=== PATIENT | male | born 1955 | race Caucasian/White ===

== ENCOUNTER 2024-06-30 10:30 | Emergency (ER) | payer OTHER ==
[2024-06-30] MEDS ORDERED: NA CHLORIDE 0.9% 1,000 ML ONE (11:08)
[2024-06-30] MEDS ORDERED: BISACODYL 10 MG RECTAL SUPP ONE (11:08)
[2024-06-30] MEDS ORDERED: FAMOTIDINE 20 MG/2 ML VIAL IV ONE (11:08)
[2024-06-30] MEDS ORDERED: LACTULOSE 20 GM/30 ML UCUP ONE (11:09)
[2024-06-30 11:12] LABS: Absolute Eosinophils 0.2 K/uL (0-0.5); Absolute Lymphocytes (CBC) 1.2 K/uL (0.7-4.9); Absolute Monocytes 0.8 K/uL (0.1-1.3); Absolute Neutrophil 2.9 K/uL (1.8-8.0); Basophils % 0.8 % (0-1.3); Eosinophils % 4.2 % (0-4.4); Lymphocytes % 22.4 % (15.3-44.8); MCH 33.7 pg (27.0-35.0); MCHC 33.3 g/dL (32.0-36.0); MCV 101.3 fL (80-100); Monocytes % 16.2 % (3.3-12.3); Neutrophils % 56.4 % (41.7-73.7); Nucleated Red Blood Cells % 0.1 % (0-0); Platelets 174 thou/uL (152-406); RBC Red Blood Cell Count 2.07 M/uL (4.33-5.43); Red Cell Distribution Width 15.1 % (12.1-15.2)
[2024-06-30 11:15] LABS: PT Prothrombin Time 15.9 SECONDS (9.4-12.5); Protime INR 1.43
[2024-06-30 11:32] LABS: Anion Gap 11.6 mEq/L (5.0-15.0); Bilirubin Direct 0.3 mg/dL (0-0.2); Bilirubin Indirect, Calculated 0.6 mg/dL (0.2-0.8); Bilirubin Total 0.9 mg/dL (0.2-1.0); Magnesium 2.2 mg/dL (1.6-2.4); Potassium 3.6 mEq/L (3.5-5.1)
[2024-06-30 11:35] LABS: Sqamous Epithelial <5 /HPF (None Seen); Urine Bacteria None Seen /HPF (<20); Urine Bilirubin NEGATIVE (Negative); Urine Blood Negative (Negative); Urine Clarity Clear (Clear); Urine Color Yellow (Yellow); Urine Culture Reflex Order NOT NEEDED; Urine Glucose NEGATIVE (Negative); Urine Ketones TRACE (Negative); Urine Microscopic Reflex YN ORDER UMIC; Urine Mucus 1+ /HPF (None Seen); Urine Nitrite NEGATIVE (Negative); Urine Protein TRACE (Negative); Urine RBC <5 /HPF (None Seen); Urine Urobilinogen Normal (Normal); Urine WBC <5 /HPF (<5); Urine pH 5.5 (5.0-7.0)
[2024-06-30 11:37] LABS: Troponin High Sensitivity 1070.2 pg/mL (<58.9)
--- NOTE | 2024-06-30 11:37 | RAD REPORT ---
EXAMINATION: ONE VIEW CHEST XR CLINICAL INDICATION: ABDOMINAL DISTENTION TECHNIQUE: Frontal chest projection is submitted. Examination is limited by patient positioning and t echnique. COMPARISON: No prior exam. FINDINGS: The lungs are well inflated and clear. The heart is normal in size. No displaced fractures identified . IMPRESSION: No acute intrathoracic abnormalities.
--- NOTE | 2024-06-30 12:14 | RAD REPORT ---
EXAMINATION: CT ABDOMEN AND PELVIS WITH CONTRAST CLINICAL INDICATION: Abd pain;Constipation TECHNIQUE: CT abdomen and pelvis was performed, after the administration of IV contrast, as per [facility] protocol. Axial, sagittal and coronal reconstructions were obtained. One or more of the following dose reduction techniques were used: Automated exposure control, adjustment of the mA and k V according to patient size, and iterative reconstruction. Unless otherwise specified, incidental findings do not require dedicated imaging follow-up. COMPARISON: 04/02/2024 FINDINGS: LOWER CHEST: The visualized lung bases are clear. Numerous varicosities seen at the gastroesophageal junction. LIVER: Mild fatty liver is present. No focal lesion or biliary dilatation is seen. Grossly unremark able gallbladder. SPLEEN: 3 cm rim enhancing lesion unchanged. PANCREAS: No mass, ductal dilation, or dandre-pancreatic fluid. ADRENALS: Normal; no mass. KIDNEYS: Several calyceal stones left kidney without hydronephrosis. Right-sided stones or hydronephr osis. GASTROINTESTINAL TRACT: No evidence of free air, significant intra-abdominal free fluid, bowel obstru ction or abscess. Moderate stool is present in the colon. Several diverticula extend from the sigmoid colon. Mild adjacent fluid is seen. APPENDIX: Normal appendix. LYMPH NODES: No lymphadenopathy. MUSCULOSKELETAL: Mild multilevel spinal degenerative changes. ADDITIONAL FINDINGS: None. IMPRESSION: No acute or concerning abnormalities seen in the abdomen or pelvis. Nonobstructing left renal calculi. Sigmoid diverticulosis coli with mild adjacent fluid. Follow-up colonoscopy would be advised if not r ecently performed.
[2024-06-30] MEDS ORDERED: NA CHLORIDE 0.9% 250 ML ONE ×2 (12:25→13:24)
[2024-06-30] MEDS ORDERED: NA CHLORIDE 0.9% 100 ML ONE (12:25)
[2024-06-30] MEDS ORDERED: PANTOPRAZOLE 40 MG INJ ONE (12:25)
[2024-06-30] MEDS ORDERED: PIPERACIL/TAZO 3.375 GM VIAL IV ONE (12:26)
[2024-06-30 12:35] LABS: Hemoglobin 6.7 g/dL (13.6-17.9); Percent Reticulocyte Count 8.32 % (0.4-2.05); RBC Red Blood Cell Count 1.89 M/uL (4.33-5.43)
--- NOTE | 2024-06-30 12:40 | EDPHYS ---
Physician Documentation [facility] Name: Jonah Oliveira Age: 69 yrs Sex: Male : 1955 Arrival Date: 06/30/2024 Time: 10:30 Bed 16 Private MD: ED Physician Kuldeep Ray HPI: 06/30 12:24 This 69 yrs old Male presents to ER via Ambulatory with complaints of srini Dizziness. 12:24 The patient presents with dizziness, feeling faint, generalized weakness, srini lightheadedness. Onset: The symptoms/episode began/occurred 5 day(s) ago. Modifying factors: The symptoms are alleviated by EXERTION. Associated signs and symptoms: Pertinent positives: WEAK, DARK STOOLS , NO BLACK. Severity of symptoms: At their worst the symptoms were moderate in the emergency department the symptoms have improved moderately, NO CP INITALLY. Patient's baseline: Neuro: alert and fully oriented. The patient has not experienced similar symptoms in the past. Historical: - Allergies: 10:47 No Known Allergies; ss - Home Meds: 10:47 Lisinopril [Active]; Metformin [Active]; Flomax Oral [Active]; ss - PMHx: 10:47 hypertension; Diabetes mellitus; Enlarged prostate; ss - PSHx: 10:47 cataracts; ss - Immunization history:: Client reports receiving the 2nd dose of the Covid vaccine. - Infectious Disease History:: Denies. - Social history:: Smoking status: Patient denies any tobacco usage or history of. ROS: 12:28 Constitutional: Negative for fever, chills, and weight loss, Eyes: Negative for injury, srini pain, redness, and discharge, ENT: Negative for injury, pain, and discharge, Neck: Negative for injury, pain, and swelling, Cardiovascular: Negative for chest pain, palpitations, and edema, Respiratory: Negative for shortness of breath, cough, wheezing, and pleuritic chest pain, Back: Negative for injury and pain, : Negative for injury, bleeding, discharge, and swelling, MS/Extremity: Negative for injury and deformity, Skin: Negative for injury, rash, and discoloration, Psych: Negative for depression, anxiety, suicide ideation, homicidal ideation, and hallucinations, Allergy/Immunology: Negative for hives, rash, and allergies, Endocrine: Negative for neck swelling, polydipsia, polyuria, polyphagia, and marked weight changes, Hematologic/Lymphatic: Negative for swollen nodes, abnormal bleeding, and unusual bruising, 12:28 Abdomen/GI: Positive for abdominal pain, nausea, black/tarry stool, of the right lower quadrant and left lower quadrant, 12:28 MS/extremity: Negative for acute changes, swelling, tenderness, Exam: 12:28 Constitutional: This is a well developed, well nourished patient who is awake, alert, srini and in no acute distress. Head/Face: Normocephalic, atraumatic. Eyes: Pupils equal round and reactive to light, extra-ocular motions intact. Lids and lashes normal. Conjunctiva and sclera are non-icteric and not injected. Cornea within normal limits. Periorbital areas with no swelling, redness, or edema. ENT: Nares patent. No nasal discharge, no septal abnormalities noted. Tympanic membranes are normal and external auditory canals are clear. Oropharynx with no redness, swelling, or masses, exudates, or evidence of obstruction, uvula midline. Mucous membranes moist. Neck: Trachea midline, no thyromegaly or masses palpated, and no cervical lymphadenopathy. Supple, full range of motion without nuchal rigidity, or vertebral point tenderness. No Meningismus. Chest/axilla: Normal chest wall appearance and motion. Nontender with no deformity. No lesions are appreciated. Cardiovascular: Regular rate and rhythm with a normal S1 and S2. No gallops, murmurs, or rubs. Normal PMI, no JVD. No pulse deficits. Respiratory: Lungs have equal breath sounds bilaterally, clear to auscultation and percussion. No rales, rhonchi or wheezes noted. No increased work of breathing, no retractions or nasal flaring. Back: No spinal tenderness. No costovertebral tenderness. Full range of motion. Male : Normal genitalia with no discharge or lesions. Skin: Warm, dry with normal turgor. Normal color with no rashes, no lesions, and no evidence of cellulitis. MS/ Extremity: Pulses equal, no cyanosis. Neurovascular intact. Full, normal range of motion., bilateral aka Neuro: Awake and alert, GCS 15, oriented to person, place, time, and situation. Cranial nerves II-XII grossly intact. Motor strength 5/5 in all extremities. Sensory grossly intact. Cerebellar exam normal. Normal gait. Psych: Awake, alert, with orientation to person, place and time. Behavior, mood, and affect are within normal limits. 12:28 ECG was reviewed by the Attending Physician. 12:28 Abdomen/GI: Inspection: abdomen appears normal, Bowel sounds: normal, Palpation: mild abdominal tenderness, in the right lower quadrant and left lower quadrant, Liver: no appreciated palpable abnormalities, Hernia: not appreciated, 12:30 ECG was reviewed by the Attending Physician. [facility] 12:30 Abdomen/GI: Rectal exam: rectal tone normal, Stool: black, mass, is not appreciated, swelling, is not appreciated, tenderness, is not appreciated, Vital Signs: 10:46 BP 118 / 66; Pulse 98; Resp 16; Temp 97.5(TE); Pulse Ox 100% on R/A; Weight 79.38 kg; ss Height 5 ft. 9 in. ; Pain 0/10; 11:52 BP 124 / 68; Pulse 84; Resp 16; Pulse Ox 99% ; ko1 12:30 BP 132 / 73; Pulse 94; Resp 18; Temp 97.9; Pulse Ox 100% on 2 lpm NC; ko1 14:00 BP 122 / 60; Pulse 89; Resp 15; Temp 98.1; Pulse Ox 100% on 2 lpm NC; ko1 14:51 BP 122 / 69; Pulse 80; Resp 16; Temp 98; Pulse Ox 99% ; ko1 10:46 Body Mass Index 25.84 (79.38 kg, 175.26 cm) ss 10:46 Pain Scale: Adult ss MDM: 10:38 Medical Screening Exam initiated srini 12:33 Differential diagnosis: abnormal EKG, acute myocardial infarction, anxiety, gastritis, srini diverticulitis, hemorrhoids, hemorrhagic shock, gastritis, pancreatitis, peptic ulcer disease, pulmonary embolus, stable angina, thoracic aortic disection, unstable angina. Differential Diagnosis altered mental status, sepsis, flu. HEART Score: History: Moderately Suspicious (1), ECG: Non specific repolarization disturbance / LBTB / PM (1), Age: > or = 65 years (2), Risk Factors: > or = 3 Risk factors for atherosclerotic disease (2), [Hypercholesterolemia] [Hypertension] [DM] [+ Family HX] Troponin: > or = 3 x Normal Limit (2), Total Score = 6. The patient was not given aspirin in the Emergency Department. SIMON Risk Score: 1 - patient's age is greater or equal to 65 years, 1 - Three or more CAD risk factors, 1 - Recent [<24hrs] Severe Angina, 1 - Elevated Cardiac Markers, TOTAL SCORE = 4. Data reviewed: vital signs, nurses notes, lab test result(s), EKG, radiologic studies, CT scan, plain films. Consideration of Admission/Observation Escalation of care including admission/observation considered. I considered the following discharge prescriptions or medication management in the emergency department Medications were administered in the Emergency Department. See MAR. Independent interpretation of the following test(s) in the Emergency Department EKG: See my EKG interpretation above. Historians other than the Patient: PT POOR HISTORIAN WITH SPECIFICS. Counseling: I had a detailed discussion with the patient and/or guardian regarding the historical points, exam findings, and any diagnostic results supporting the discharge/admit diagnosis, lab results, radiology results, the need to transfer to another facility, for higher level of care, [facility] does not immediately have the required specialist. 06/30 11:57 Order name: Type And Screen [facility] 06/30 10:40 Order name: Basic Metabolic Panel; Complete Time: 11:55 [facility] 06/30 10:40 Order name: CBC with Diff; Complete Time: 11:55 [facility] 06/30 10:40 Order name: LFT's; Complete Time: 11:55 [facility] 06/30 10:40 Order name: Magnesium; Complete Time: 11:55 [facility] 06/30 10:40 Order name: NT PRO-BNP; Complete Time: 11:55 [facility] 06/30 10:40 Order name: PT-INR; Complete Time: 11:55 [facility] 06/30 10:40 Order name: Troponin HS; Complete Time: 11:55 [facility] 06/30 10:40 Order name: Urinalysis w/ reflexes; Complete Time: 11:55 [facility] 06/30 10:40 Order name: Lipase; Complete Time: 11:55 [facility] 06/30 11:57 Order name: Retic Count; Complete Time: 12:50 [facility] 06/30 11:57 Order name: B12 [facility] 06/30 11:57 Order name: Iron Level [facility] 06/30 11:57 Order name: Ferritin [facility] 06/30 11:57 Order name: TIBC [facility] 06/30 12:27 Order name: LAB Add On sp 06/30 12:30 Order name: Packed RBC Leukored [facility] 06/30 12:31 Order name: Hemoglobin; Complete Time: 12:50 [facility] 06/30 13:01 Order name: ABO/RH no charge [facility] 06/30 10:40 Order name: XRAY Chest (1 view); Complete Time: 11:55 [facility] 06/30 10:40 Order name: CT Abd/Pelvis - PO and IV Contrast; Complete Time: 12:15 [facility] 06/30 12:19 Order name: EKG; Complete Time: 12:19 [facility] 06/30 10:40 Order name: Cardiac monitoring; Complete Time: 11:06 [facility] 06/30 10:40 Order name: EKG - Nurse/Tech; Complete Time: 11:32 [facility] 06/30 10:40 Order name: IV Saline Lock; Complete Time: 11:06 [facility] 06/30 10:40 Order name: Labs collected and sent; Complete Time: 11:06 [facility] 06/30 10:40 Order name: O2 Per Protocol; Complete Time: 11:06 [facility] 06/30 10:40 Order name: O2 Sat Monitoring; Complete Time: 11:06 [facility] 06/30 11:57 Order name: Transfuse; Complete Time: 14:01 [facility] 06/30 12:17 Order name: Oxygen: 2 LITERS; Complete Time: 12:22 [facility] 06/30 12:19 Order name: EKG - Nurse/Tech; Complete Time: 12:22 [facility] 06/30 13:01 Order name: IV Saline Lock - Large Bore; Complete Time: 13:08 [facility] EC:28 Rate is 81 beats/min. Rhythm is regular. QRS [place] is Normal. AK interval is normal. QRS srini interval is normal. QT interval is prolonged at 497 msec. No Q waves. T waves are Normal. No ST changes noted. Clinical impression: NSR w/ Non-specific ST/T Changes and No evidence of ischemia. Interpreted by me. Reviewed by me. 12:30 Rate is 93 beats/min. Rhythm is regular. QRS [place] is Normal. AK interval is normal. QRS srini interval is normal. QT interval is prolonged at 532 msec. No Q waves. T waves are Normal. ST Segment is depressed in leads II, III, aVF, V3, V4, V5, V6. Interpreted by me. Reviewed by me. Administered Medications: 11:13 Drug: NS 0.9% IV 1000 ml IV at 1000 ml once; to be given as a bolus over 60 minutes ko1 Route: IV; Rate: 1000 ml; Site: right antecubital; 12:58 Follow up: Response: No adverse reaction; IV Status: Completed infusion; IV Intake: ko1 1000ml 11:13 Drug: Lactulose PO 30 grams 45 ml PO once Volume: 45 ml; Route: PO; ko1 11:48 Follow up: Response: No adverse reaction ko1 11:13 Drug: Famotidine IVP 20 mg IVP once; dilute with 10 mL 0.9% NaCl; give over 2 minutes ko1 Route: IVP; Site: right antecubital; 11:28 Follow up: Response: No adverse reaction ko1 11:15 Drug: Dulcolax AK Suppository 10 mg AK once Route: AK; ko1 11:45 Follow up: Response: No adverse reaction ko1 12:30 Drug: Pantoprazole IVP 80 mg IVP once Route: IVP; Site: right antecubital; ko1 12:45 Follow up: Response: No adverse reaction ko1 12:31 Drug: Piperacillin-Tazobactam IVPB 3.375 grams IVPB once over 60 mins; (mix in NS 100 ko1 mL) Route: IVPB; Infused Over: 60 mins; Site: right antecubital; 13:31 Follow up: Response: No adverse reaction; IV Status: Completed infusion; IV Intake: ko1 100ml 12:37 Drug: Pantoprazole IV 8 mg/hr IV at 25 ml/hr continuous; (Standard dilution is 80 mg in ko1 250 mL NS) Route: IV; Rate: 25 ml/hr; Site: left antecubital; 14:55 Follow up: IV Status: Infusion continued upon transfer ko1 13:31 Drug: diphenhydrAMINE IVP 25 mg IVP once Route: IVP; Site: left antecubital; ko1 13:46 Follow up: Response: No adverse reaction ko1 13:32 Drug: Acetaminophen PO 650 mg PO once Route: PO; ko1 13:59 Follow up: Response: No adverse reaction ko1 Disposition Summary: 06/30/24 12:39 Transfer Ordered Notes: Transfer Location: [facility] srini Reason: Higher level of care srini Condition: Serious srini Problem: new srini Symptoms: are unchanged srini Accepting Physician: TO ICU///CCU(06/30/24 14:56) ko1 Diagnosis - GI Bleed/ Gastrointestinal hemorrhage, unspecified - UPPER srini - Non ST elevation [place] srini - Unstable angina srini - Acute posthemorrhagic anemia srini - Abnormal electrocardiogram [ECG] [EKG] srini - Weakness srini Forms: - Medication Reconciliation Form srini - SBAR form srini Signatures: Dispatcher [employer] EDMS Kuldeep Ray MD MD cha Blanchard, Shelby, EDWARD RN ss Yaneth Hay RN RN ko1 Corrections: (The following items were deleted from the chart) 10:41 10:41 Abdomen Pelvis W Con+CT.RAD.BRZ ordered. EDMS EDMS 12:29 12:06 Hemoglobin+H.LAB.BRZ ordered. EDMS EDMS 14:56 12:39 TO ICU///CCU srini ko1
--- NOTE | 2024-06-30 12:40 | ER ---
Nurse's Notes [facility] Name: Jonah Oliveira Age: 69 yrs Sex: Male : 1955 Arrival Date: 06/30/2024 Time: 10:30 Bed 16 Private MD: Diagnosis: GI Bleed/ Gastrointestinal hemorrhage, unspecified-UPPER;Non ST elevation [place];Unstable angina;Acute posthemorrhagic anemia;Abnormal electrocardiogram [ECG] [EKG];Weakness Presentation: 06/30 10:46 Chief complaint: Patient states: episodes of dizziness and feeling lightheaded x 5 ss days. Coronavirus screen: Client denies travel out of the [place] in the last 14 days. Ebola Screen: Patient denies exposure to infectious person. Patient denies travel to an Ebola-affected area in the 21 days before illness onset. Initial Sepsis Screen: Does the patient meet any 2 criteria? No. Patient's initial sepsis screen is negative. Does the patient have a suspected source of infection? No. Patient's initial sepsis screen is negative. Risk Assessment: Do you want to hurt yourself or someone else? Patient reports no desire to harm self or others. Onset of symptoms was May 2024. 10:46 Method Of Arrival: Ambulatory ss 10:46 Acuity: ARIANNE 2 ko1 Historical: - Allergies: 10:47 No Known Allergies; ss - Home Meds: 10:47 Lisinopril [Active]; Metformin [Active]; Flomax Oral [Active]; ss - PMHx: 10:47 hypertension; Diabetes mellitus; Enlarged prostate; ss - PSHx: 10:47 cataracts; ss - Immunization history:: Client reports receiving the 2nd dose of the Covid vaccine. - Infectious Disease History:: Denies. - Social history:: Smoking status: Patient denies any tobacco usage or history of. Screenin:[address] [facility] ED Fall Risk Assessment (Adult) History of falling in the last 3 months, ko1 including since admission No falls in past 3 months (0 pts) Confusion or Disorientation No (0 pts) Intoxicated or Sedated No (0 pts) Impaired Gait No (0 pts) Mobility Assist Device Used No (0 pt) Altered Elimination No (0 pt) Score/Fall Risk Level 0 - 2 = Low Risk Oriented to surroundings, Maintained a safe environment, Educated pt \T\ family on fall prevention, incl call for assistance when getting out of bed, Assessed \T\ reinforced patient's understanding of fall precautions, Hourly rounding (assess needs \T\ fall precautionary measures) done. Abuse screen: Denies threats or abuse. Denies injuries from another. Nutritional screening: No deficits noted. Tuberculosis screening: No symptoms or risk factors identified. Assessment: 11:52 General: Appears in no apparent distress. Behavior is calm, cooperative, appropriate ko1 for age. Pain: Denies pain. Neuro: Reports dizziness. Cardiovascular: Reports lightheadedness. Respiratory: No deficits noted. GI: Bowel sounds present X 4 quads. Abd is soft and non tender X 4 quads. GI: Reports constipation. : No deficits noted. EENT: No deficits noted. Derm: No deficits noted. Musculoskeletal: No deficits noted. Vital Signs: 10:46 BP 118 / 66; Pulse 98; Resp 16; Temp 97.5(TE); Pulse Ox 100% on R/A; Weight 79.38 kg; ss Height 5 ft. 9 in. ; Pain 0/10; 11:52 BP 124 / 68; Pulse 84; Resp 16; Pulse Ox 99% ; ko1 12:30 BP 132 / 73; Pulse 94; Resp 18; Temp 97.9; Pulse Ox 100% on 2 lpm NC; ko1 14:00 BP 122 / 60; Pulse 89; Resp 15; Temp 98.1; Pulse Ox 100% on 2 lpm NC; ko1 14:51 BP 122 / 69; Pulse 80; Resp 16; Temp 98; Pulse Ox 99% ; ko1 10:46 Body Mass Index 25.84 (79.38 kg, 175.26 cm) ss 10:46 Pain Scale: Adult ss ED Course: 10:37 Patient arrived in ED. im 10:38 Kuldeep Ray MD is Attending Physician. srini 10:47 Triage completed. ss 10:47 Arm band placed on right wrist. ss 10:50 Yaneth Hay, EDWARD is Primary Nurse. ko1 11:05 Initial lab(s) drawn, by tn, sent to lab. Urine collected: clean catch specimen, clear, ko1 EKG done, by ED staff, reviewed by Kuldeep Ray MD. Inserted saline lock: 20 gauge in right antecubital area, using aseptic technique. Blood collected. Flushed with 10 mL NS. 11:06 Basic Metabolic Panel Sent. ko1 11:06 CBC with Diff Sent. ko1 11:07 LFT's Sent. ko1 11:07 Magnesium Sent. ko1 11:07 NT PRO-BNP Sent. ko1 11:07 PT-INR Sent. ko1 11:07 Troponin HS Sent. ko1 11:09 Lipase Sent. ko1 11:13 Urinalysis w/ reflexes Sent. ko1 11:22 XRAY Chest (1 view) In Process Unspecified. EDMS 11:52 Patient has correct armband on for positive identification. Placed in gown. Bed in low ko1 position. Call light in reach. Side rails up X 1. Provided Education on: labs, meds. Client placed on continuous cardiac and pulse oximetry monitoring. NIBP monitoring applied. teletypesetter monitor on. Door closed. Noise minimized. Lights dimmed. Warm blanket given. Pillow given. 12:01 CT Abd/Pelvis - PO and IV Contrast In Process Unspecified. EDMS 12:20 Inserted saline lock: 18 gauge in left antecubital area, using aseptic technique. ko1 Flushed with 10 mL NS. 12:21 TIBC Sent. ko1 12:21 Ferritin Sent. ko1 12:21 Iron Level Sent. ko1 12:21 B12 Sent. ko1 12:21 Retic Count Sent. ko1 12:21 Type And Screen Sent. ko1 12:33 LAB Add On Sent. ko1 12:33 Hemoglobin Sent. ko1 13:59 No provider procedures requiring assistance completed. ko1 14:00 Pt visited by son. ko1 14:[address] Ray called transfer center to start transfer talked to Mary Jo Catherine accepted pt. [id number] admin approval to [facility] by Mary Jo Mann to [address] [place] [address] CCU room 610 report number [phone]. 14:10 called [facility] for transport to [facility]. talked to Kenzie. delicia 14:54 Patient transferred, IV remains in place. ko1 Administered Medications: 11:13 Drug: NS 0.9% IV 1000 ml IV at 1000 ml once; to be given as a bolus over 60 minutes ko1 Route: IV; Rate: 1000 ml; Site: right antecubital; 12:58 Follow up: Response: No adverse reaction; IV Status: Completed infusion; IV Intake: ko1 1000ml 11:13 Drug: Lactulose PO 30 grams 45 ml PO once Volume: 45 ml; Route: PO; ko1 11:48 Follow up: Response: No adverse reaction ko1 11:13 Drug: Famotidine IVP 20 mg IVP once; dilute with 10 mL 0.9% NaCl; give over 2 minutes ko1 Route: IVP; Site: right antecubital; 11:28 Follow up: Response: No adverse reaction ko1 11:15 Drug: Dulcolax MT Suppository 10 mg MT once Route: MT; ko1 11:45 Follow up: Response: No adverse reaction ko1 12:30 Drug: Pantoprazole IVP 80 mg IVP once Route: IVP; Site: right antecubital; ko1 12:45 Follow up: Response: No adverse reaction ko1 12:31 Drug: Piperacillin-Tazobactam IVPB 3.375 grams IVPB once over 60 mins; (mix in NS 100 ko1 mL) Route: IVPB; Infused Over: 60 mins; Site: right antecubital; 13:31 Follow up: Response: No adverse reaction; IV Status: Completed infusion; IV Intake: ko1 100ml 12:37 Drug: Pantoprazole IV 8 mg/hr IV at 25 ml/hr continuous; (Standard dilution is 80 mg in ko1 250 mL NS) Route: IV; Rate: 25 ml/hr; Site: left antecubital; 14:55 Follow up: IV Status: Infusion continued upon transfer ko1 13:31 Drug: diphenhydrAMINE IVP 25 mg IVP once Route: IVP; Site: left antecubital; ko1 13:46 Follow up: Response: No adverse reaction ko1 13:32 Drug: Acetaminophen PO 650 mg PO once Route: PO; ko1 13:59 Follow up: Response: No adverse reaction ko1 Medication: 11:52 VIS not applicable for this client. ko1 13:59 Blood products: PRBCs X 1 unit given. See transfusion record. ko1 14:54 Blood products: PRBCs X 2 units given. See transfusion record sent with EMS. ko1 Intake: 12:58 IV: 1000ml; Total: 1000ml. ko1 13:31 IV: 100ml; Total: 1100ml. ko1 Outcome: 12:39 ER care complete, transfer ordered by MD. milligan 14:[address] [facility] to [facility], [facility], Transfer form ko1 completed. X-rays sent w/ patient. 14:54 Condition: stable 14:54 Instructed on the need for transfer, 14:56 Patient left the ED. ko1 Signatures: Dispatcher [employer] EDMS Kuldeep Ray MD MD cha Pinkerton, Shawna sp Blanchard, Shelby, RN RN Yaneth Hay RN RN ko1 Lucrecia Farley Corrections: (The following items were deleted from the chart) 12:29 12:21 Hemoglobin+H.LAB.BRZ drawn and sent. [address] 14:54 14:00 Blood products: PRBCs X 2 units given. See transfusion record sent with EMS ko1 ko1 15:10 10:46 Acuity: ARIANNE 3 ss ko1
[2024-06-30 13:07] LABS: Ferritin 83.6 ng/mL (26-388)
[2024-06-30] MEDS ORDERED: ACETAMINOPHEN 325 MG TABLET ONE (13:23)
[2024-06-30] MEDS ORDERED: DIPHENHYDRAMINE 50 MG/ML VIAL ONE (13:24)
[2024-06-30 17:19] VITALS: BP 122/69; TEMP 98; O2SAT 99
--- NOTE | 2024-07-01 10:18 | EKG ---
Test Date: 2024-06-30 Test Time: 12:19:46 Educational Recruiter: KEAGAN MEASUREMENT RESULTS: Intervals: Rate: 93 CA: 170 QRSD: 92 QT: 428 QTc: 532 [place]: P: 67 CA: 170 QRS: 48 T: 75 INTERPRETIVE STATEMENTS: Sinus rhythm with occasional premature ventricular complexes and premature atrial complexes ST & T wave abnormality, consider inferior ischemia Prolonged QT Abnormal ECG Compared to ECG 06/30/2024 11:26:17 Atrial premature complex(es) now present Ventricular premature complex(es) now present Possible ischemia now present ST (T wave) deviation still present Electronically Signed On 07-01-24 10:17:39 CLASSROOM TECHNOLOGY COACH by Jayme Espinoza
--- NOTE | 2024-07-01 10:19 | EKG ---
Test Date: 2024-06-30 Test Time: 11:26:17 Associate Sales Representative: LEONID MEASUREMENT RESULTS: Intervals: Rate: 81 FL: 160 QRSD: 98 QT: 426 QTc: 494 [place]: P: 57 FL: 160 QRS: 27 T: 61 INTERPRETIVE STATEMENTS: Normal sinus rhythm Nonspecific ST abnormality Prolonged QT Abnormal ECG No previous ECG available for comparison Electronically Signed On 07-01-24 10:17:41 CHECK AND TRANSFER BEADER by Jayme Espinoza
== END 2024-06-30 14:56 | disposition short-term general hospital (02) ==
LOC: ER 10:30
DX: I21.4 Non-ST elevation (NSTEMI) myocardial infarction (principal); I20.0 Unstable angina; D62 Acute posthemorrhagic anemia; R94.31 Abnormal electrocardiogram [ECG] [EKG]; R53.1 Weakness; I10 Essential (primary) hypertension; E11.9 Type 2 diabetes mellitus without complications
CPT/HCPCS: 93005 ×2; 85025; 81001; 80048; 36415; 86900; 83735; 86850; 85610; 85044; 86901; 80076; 86920 ×2; 85018; 84484; 82728; 82607; 83690; 83540; 83880; 84466; 74177; 71045; 36430; 99285; Q9967; J1200; J2543; J2470; P9016 ×2; J7050 ×2; J7030